=== PATIENT | female | born 1985 | race Caucasian/White ===

== ENCOUNTER 2023-04-21 15:01 | Outpatient (CLI) | payer BC, SELFPAY | END 2023-04-21 15:02 | disposition home or self-care (01) | LOC: NFLDREF 05-07 13:02 | PROVIDERS: Visit Provider Nurse Practitioner Family | DX: R19.7 Diarrhea, unspecified (principal) | CPT/HCPCS: 87505 ==

== ENCOUNTER 2023-12-05 09:15 | Outpatient (CLI) | payer BC, SELFPAY | END 2023-12-05 09:16 | disposition home or self-care (01) | LOC: NFLDREF 15:46 | PROVIDERS: PCP Nurse Practitioner Family; Referring Provider Nurse Practitioner Family; Visit Provider Nurse Practitioner Family | DX: N39.0 Urinary tract infection, site not specified (principal); N30.00 Acute cystitis without hematuria | CPT/HCPCS: 87086; 87186 ==